=== PATIENT | male | born 1990 | race American Indian/Alaskan Native ===

== ENCOUNTER 2019-09-29 06:43 | Emergency (ER) | payer OTHER ==
--- NOTE | 2019-09-29 08:00 | Emergency Department Report ---
ED General Adult HPI - General Chief complaint: Medical Clearance Stated complaint: MED REFILL Time Seen by Provider: 09/29/19 07:30 Source: patient Mode of arrival: Ambulatory Limitations: No Limitations - History of Present Illness Initial comments: 29-year-old -[place] male patient with history of schizophrenia presents for refill of his lorazepam today. Patient's mother states that his office forgot to call in his refill and now it is the weekend and she is unable to get ahold of them. Patient also takes risperidone, but she states patient has plenty of risperidone last period his mother states that without his lorazepam he develops agitation. She denies any other complaints or concerns for patient. - Related Data Previous Rx's Medication Instructions Recorded Last Taken Type risperiDONE [RisperiDONE] 2 mg PO BID #120 tab 01/13/16 09/28/19 Rx LORazepam [Ativan] 1 tab PO BID #6 tab 09/29/19 Unknown Rx Allergies Allergy/AdvReac Type Severity Reaction Status Date / Time No Known Allergies Allergy Verified 01/26/16 07:44 ED Review of Systems ROS: Stated complaint: MED REFILL Other details as noted in HPI Comment: All other systems reviewed and negative ED Past Medical Hx - Past Medical History Previous Medical History?: Yes Hx Seizures: Yes Hx Psychiatric Treatment: Yes (schizophrenia, catatonia) - Surgical History Past Surgical History?: Yes Additional Surgical History: T & A - Social History Smoking Status: Never Smoker Substance Use Type: None - Medications Home Medications: Home Medications Medication Instructions Recorded Confirmed Last Taken Type risperiDONE [RisperiDONE] 2 mg PO BID #120 tab 01/13/16 09/29/19 09/28/19 Rx LORazepam [Ativan] 1 tab PO BID #6 tab 09/29/19 Unknown Rx ED Physical Exam - General Limitations: No Limitations General appearance: alert, in no apparent distress - Head Head exam: Present: atraumatic, normocephalic - Eye Eye exam: Absent: scleral icterus - Respiratory Respiratory exam: Absent: respiratory distress - Cardiovascular Cardiovascular Exam: Present: regular rate, normal rhythm ED Medical Decision Making - Medical Decision Making Patient here for refill of lorazepam. Given his schizophrenia and history of agitation, we will give her a temporary refill for 3 days until patient can follow up with his doctor on Tuesday given the holiday. Prescription was verified and she [employer] SHIPPING HELPER-no suspicion of abuse of medication was noted. Patient's mother also has original prescription information and bottle. Critical care attestation.: If time is entered above; I have spent that time in minutes in the direct care of this critically ill patient, excluding procedure time. ED Disposition Clinical Impression: Medication refill Disposition: DC- TO HOME OR SELFCARE Is pt being admited?: No Condition: Stable Prescriptions: LORazepam [Ativan] 1 tab PO BID #6 tab
[2019-09-29 08:11] VITALS: BP 136/92
== END 2019-09-29 08:17 | disposition home or self-care (01) ==
LOC: ED 06:43
DX: F20.9 Schizophrenia, unspecified (principal); Z76.0 Encounter for issue of repeat prescription; Z98.890 Other specified postprocedural states; Z79.899 Other long term (current) drug therapy

== ENCOUNTER 2022-01-29 09:54 | Emergency (ER) | payer OTHER ==
--- NOTE | 2022-01-29 10:58 | Emergency Department Report ---
ED General Adult HPI - General Chief complaint: Recheck/Abnormal Lab/Rx Stated complaint: OUT OF MEDS Time Seen by Provider: 01/29/22 10:14 Source: patient Mode of arrival: Ambulatory Limitations: No Limitations - History of Present Illness Initial comments: 31-year-old -[place] male patient presents with his mother for medication refill today. Patient's mother states they have been having difficulty getting an appointment with his PCP due to his normal PCP retiring and a new doctor taking over the office. She states they have an appointment scheduled for 02/05/2022 and that he is currently out of his lorazepam and risperidone. Patient states he is feeling well and patient's mother states she has no other complaints or concerns - Related Data Previous Rx's Medication Instructions Recorded Last Taken Type risperiDONE [RisperiDONE] 2 mg PO BID #120 tab 01/13/16 09/28/19 Rx LORazepam [Ativan] 1 tab PO BID #14 tab 01/29/22 Unknown Rx risperiDONE [RisperDAL] 2 mg PO QDAY #10 tab 01/29/22 Unknown Rx Allergies Allergy/AdvReac Type Severity Reaction Status Date / Time No Known Allergies Allergy Verified 01/26/16 07:44 ED Review of Systems ROS: Stated complaint: OUT OF MEDS Other details as noted in HPI Comment: All other systems reviewed and negative ED Past Medical Hx - Past Medical History Hx Seizures: Yes Hx Psychiatric Treatment: Yes (schizophrenia, catatonia) - Surgical History Additional Surgical History: T & A - Social History Smoking Status: Never Smoker Substance Use Type: None - Medications Home Medications: Home Medications Medication Instructions Recorded Confirmed Last Taken Type risperiDONE [RisperiDONE] 2 mg PO BID #120 tab 01/13/16 09/29/19 09/28/19 Rx LORazepam [Ativan] 1 tab PO BID #14 tab 01/29/22 Unknown Rx risperiDONE [RisperDAL] 2 mg PO QDAY #10 tab 01/29/22 Unknown Rx ED Physical Exam - General Limitations: No Limitations General appearance: alert, in no apparent distress, obese - Head Head exam: Present: atraumatic, normocephalic - Eye Eye exam: Present: normal appearance. Absent: scleral icterus - Respiratory Respiratory exam: Absent: respiratory distress - Cardiovascular Cardiovascular Exam: Present: regular rate - Neurological Exam Neurological exam: Present: alert, oriented X3 - Psychiatric Psychiatric exam: Present: normal affect, normal mood - Skin Skin exam: Present: warm, dry, intact, normal color. Absent: rash ED Course Vital Signs 01/29/22 10:09 Temperature 98.9 F Pulse Rate 82 Respiratory 16 Rate Blood Pressure 137/78 [Left] O2 Sat by Pulse 96 Oximetry ED Medical Decision Making - Medical Decision Making 31-year-old -[place] male patient presents with his mother for medication refill today. Patient's mother states they have been having difficulty getting an appointment with his PCP due to his normal PCP retiring and a new doctor taking over the office. She states they have an appointment scheduled for 02/05/2022 and that he is currently out of his lorazepam and risperidone. Patient states he is feeling well and patient's mother states she has no other complaints or concerns I have seen this patient in the past in 09/2019 for the same. Patient reviewed and [place] [employer]IENT TECHNOLOGIES ANALYST which shows he consistently receives lorazepam from the same providers and there are no signs of drug-seeking. Short refill given of lorazepam and risperidone. Further refills are to be given by patient's PCP during his appointment 02/05/2022. Patient is otherwise well-appearing and stable for discharge home Critical care attestation.: If time is entered above; I have spent that time in minutes in the direct care of this critically ill patient, excluding procedure time. ED Disposition Clinical Impression: Encounter for medication refill Disposition: 01 HOME / SELF CARE / HOMELESS Is pt being admited?: No Condition: Stable Prescriptions: LORazepam [Ativan] 1 tab PO BID #14 tab risperiDONE [RisperDAL] 2 mg PO QDAY #10 tab
[2022-01-29 11:15] VITALS: BP 128/79
== END 2022-01-29 11:15 | disposition home or self-care (01) ==
LOC: ED 09:54
DX: F20.9 Schizophrenia, unspecified (principal); G40.909 Epilepsy, unspecified, not intractable, without status epilepticus; Z76.0 Encounter for issue of repeat prescription
CPT/HCPCS: 99282